=== PATIENT | male | born 1960 | race Caucasian/White ===

== ENCOUNTER 2021-03-17 04:17 | Inpatient (IN) | payer OTHER ==
[2021-03-17] MEDS ORDERED: LIDOCAINE HCL 1% EPINEPHRINE 1:200,000 30 ML VIAL (PF) ONE ×2 (07:56→09:08)
[2021-03-17] MEDS ORDERED: GENTAMICIN SO4 80 MG/2 ML VIAL ONE ×2 (07:56→13:28)
[2021-03-17] MEDS ORDERED: THROMBIN (BOVINE) 20,000 UNIT VIAL TP ONE ×2 (07:56→11:54)
[2021-03-17] MEDS ORDERED: BACITRACIN 15 GM TUBE TOPICAL OINTMENT ONE (07:56)
[2021-03-17] MEDS ORDERED: ACETAMINOPHEN INJECTION 100 ML IVPB ONE (08:04)
[2021-03-17] MEDS ORDERED: fentaNYL CITRATE 250 MCG/5 ML VIAL ONE (08:20)
[2021-03-17] MEDS ORDERED: PROPOFOL 20 ML ONE ×3 (08:21→14:32)
[2021-03-17] MEDS ORDERED: SUCCINYLCHOLINE CHLORIDE 200 MG/10 ML SYRINGE ONE (08:21)
[2021-03-17] MEDS ORDERED: ROCURONIUM BROMIDE 50 MG/5 ML SYRINGE ONE ×3 (08:21→12:44)
[2021-03-17] MEDS ORDERED: MIDAZOLAM HCL 2 MG/2 ML SINGLE DOSE VIAL ONE (08:22)
[2021-03-17] MEDS ORDERED: VANCOMYCIN 1,000 MG VIAL (RESTRICTED TO ID ONLY) IVPB ONE (08:45)
[2021-03-17] MEDS ORDERED: ceFAZolin SODIUM 1 GM VIAL IVPB ONE (08:45)
[2021-03-17] MEDS ORDERED: KETAMINE HCL 200 MG/20 ML VIAL ONE (08:47)
[2021-03-17] MEDS ORDERED: LIDOCAINE 1%/EPI 1:100000 (50 ML MULTI DOSE VIAL) INF ONE (08:55)
[2021-03-17] MEDS ORDERED: THROMBIN (BOVINE) 5,000 UNIT VIAL TP ONE (09:15)
[2021-03-17] MEDS ORDERED: LIDOCAINE HCL/PF 2% SDV 5ML VIAL ONE (09:18)
[2021-03-17] MEDS ORDERED: PHENYLEPHRINE HCL 10 MG/1 ML SINGLE DOSE VIAL ONE (09:18)
[2021-03-17] MEDS ORDERED: GENTAMICIN SO4 80 MG/2 ML VIAL IVPB ONE (09:30)
[2021-03-17] MEDS ORDERED: HYDROGEN PEROXIDE 473 ML PO ONE (09:30)
[2021-03-17] MEDS ORDERED: BENZOIN/ALOE VERA/STORAX/TOLU 58 ML BOTTLE ONE (11:50)
[2021-03-17] MEDS ORDERED: ALBUMIN HUMAN 25% 12.5 GM/50 ML VIAL IVPB SCH (13:00)
[2021-03-17] MEDS ORDERED: BUPIVACAINE LIPOSOME/PF (EXPAREL) 266 MG/20 ML VIAL ONE (13:28)
[2021-03-17] MEDS ORDERED: BUPIVACAINE HCL/PF 0.5% (5MG/ML) 10 ML VIAL ONE (13:29)
[2021-03-17] MEDS ORDERED: GLYCOPYRROLATE 0.2 MG/1 ML VIAL ONE (13:39)
[2021-03-17] MEDS ORDERED: NEOSTIGMINE METHYLSULFATE 0.5 MG/1 ML - 10 ML MDV ONE (13:41)
[2021-03-17] MEDS ORDERED: BUPIVACAINE LIPOSOME/PF (EXPAREL) 266 MG/20 ML VIAL NR ONE (13:46)
[2021-03-17] MEDS ORDERED: BUPIVACAINE HCL/PF 0.5% (5MG/ML) 10 ML VIAL IJ ONE (13:46)
[2021-03-17] MEDS ORDERED: PROMETHAZINE HCL 25 MG/1 ML VIAL IVPUSH PRN (15:23)
[2021-03-17] MEDS ORDERED: LACTATED RINGERS SOLUTION 1,000 ML IV SCH (15:30)
[2021-03-17] MEDS ORDERED: HYDROmorphone HCl 2 MG/ML VIAL SQ PRN (16:26)
[2021-03-17] MEDS ORDERED: oxyCODONE HCL 5 MG TABLET PO PRN (16:26)
[2021-03-17] MEDS ORDERED: ONDANSETRON 4 MG/2 ML VIAL IVPUSH PRN (16:26)
[2021-03-17] MEDS ORDERED: DEXAMETHASONE SOD PHOSPHATE 10 MG/1 ML VIAL IVPUSH ONE (16:26)
[2021-03-17] MEDS ORDERED: DEXAMETHASONE SOD PHOSPHATE 10 MG/1 ML VIAL ONE (16:56)
[2021-03-17] MEDS ORDERED: ceFAZolin SODIUM 1 GM VIAL ONE (17:54)
[2021-03-17] MEDS: CEFAZOLIN 2 GM/D5W 2 GM/50 ML ML IVPB SCH ×2 (18:50→21:21)
[2021-03-17] MEDS: LACTATED RINGERS SOLUTION 1,000 ML IV SCH (19:03)
[2021-03-17 20:52] LABS: HEMATOCRIT 37.6 % (35.4-49); HEMOGLOBIN 13.2 GM/dL (11.7-16.9); MCH 32.1 pg (25.7-33.7); MEAN CELL VOLUME 91.6 fl (80-96); MEAN PLT VOLUME 7.8 fl (7.5-11.1); PLATELET COUNT 167 10^3/uL (134-434); RDW 13.5 % (11.9-15.9); WHITE BLOOD COUNT 9.3 K/mm3 (4.0-10.0)
[2021-03-17 21:18] LABS: CALCIUM 7.9 mg/dL (8.5-10.1)
[2021-03-17 21:19] LABS: ALBUMIN 3.7 g/dl (3.4-5.0); MAGNESIUM 1.9 mg/dL (1.8-2.4)
[2021-03-17] MEDS: MUPIROCIN 2% TOPICAL OINTMENT FOR DECOLONIZATION NS SCH (21:21)
[2021-03-17 21:22] LABS: CREATININE 1.2 mg/dL (0.55-1.3); PHOSPHOROUS 2.9 mg/dL (2.5-4.9)
[2021-03-17] MEDS: CYCLOBENZAPRINE HCL 10 MG TABLET (FP) PO PRN (21:22)
[2021-03-17] MEDS: LISINOPRIL 20 MG TABLET PO SCH (21:22)
[2021-03-17] MEDS: amLODIPine BESYLATE 5 MG TABLET (FP) PO SCH (21:22)
[2021-03-17] MEDS: CHLORHEXIDINE GLUCONATE 4% CLEANSER FOR DECOLONIZATION TP SCH (21:22)
[2021-03-17] MEDS: ATORVASTATIN CA 10 MG TABLET (FP) PO SCH (21:22)
[2021-03-17 21:23] LABS: BILIRUBIN,TOTAL 0.4 mg/dL (0.2-1); TOT PROT 6.5 g/dl (6.4-8.2)
[2021-03-17] MEDS ORDERED: SODIUM CHLORIDE 1,000 ML IV STA (21:43)
[2021-03-17] MEDS ORDERED: PANTOPRAZOLE 20 MG TABLET PO ONE (22:43)
[2021-03-18] MEDS: LACTATED RINGERS SOLUTION 1,000 ML IV SCH ×3 (01:06→23:09)
[2021-03-18] MEDS: CEFAZOLIN 2 GM/D5W 2 GM/50 ML ML IVPB SCH (02:59)
[2021-03-18] MEDS: oxyCODONE HCL 5 MG TABLET PO PRN ×3 (03:41→23:10)
[2021-03-18 06:59] LABS: HEMATOCRIT 38.1 % (35.4-49); HEMOGLOBIN 13.3 GM/dL (11.7-16.9); MCH 32.1 pg (25.7-33.7); MCHC 34.9 g/dl (32.0-35.9); MEAN CELL VOLUME 92.2 fl (80-96); MEAN PLT VOLUME 8.4 fl (7.5-11.1); PLATELET COUNT 186 10^3/uL (134-434); RBC 4.14 M/mm3 (4.00-5.60); RDW 13.6 % (11.9-15.9)
[2021-03-18 07:25] LABS: BLOOD UREA NITROGEN 14.9 mg/dL (7-18); CALCIUM 7.9 mg/dL (8.5-10.1)
[2021-03-18] MEDS ORDERED: DEXAMETHASONE SOD PHOSPHATE 10 MG/1 ML VIAL IVPUSH ONE (08:05)
[2021-03-18 08:11] LABS: EPI CELLS 2 /uL (0-25.1); HYALINE CASTS 0 /uL (0-3.1); URINE APPEARANCE CLEAR; URINE BACTERIA 12 /uL (0-1359); URINE BILIRUBIN NEGATIVE (NEGATIVE); URINE COLOR YELLOW; URINE GLUCOSE (UA) 1+ (NEGATIVE); URINE KETONE NEGATIVE (NEGATIVE); URINE LEUK ESTERASE NEGATIVE (NEGATIVE); URINE NITRITE NEGATIVE (NEGATIVE); URINE PROTEIN NEGATIVE (NEGATIVE); URINE RBC 57 /uL (0-23.9); URINE UROBILINOGEN 0.2 mg/dL (0.2-1.0); URINE WBC 4 /uL (0-25.8)
[2021-03-18] MEDS: MUPIROCIN 2% TOPICAL OINTMENT FOR DECOLONIZATION NS SCH ×2 (09:14→23:10)
[2021-03-18] MEDS: TAMSULOSIN HCL 0.4 MG CAP PO SCH (09:14)
[2021-03-18] MEDS: PANTOPRAZOLE 20 MG TABLET PO SCH (09:27)
[2021-03-18 10:16] LABS: N-TERMINAL BNP 454.4 pg/ml (5-125)
[2021-03-18] MEDS ORDERED: METOPROLOL TARTRATE 5 MG/5 ML VIAL IVPUSH ONE (18:01)
[2021-03-18] MEDS ORDERED: METOPROLOL TARTRATE 5 MG/5 ML VIAL IVPUSH PRN (19:17)
[2021-03-18] MEDS: ATORVASTATIN CA 10 MG TABLET (FP) PO SCH (23:09)
[2021-03-18] MEDS: amLODIPine BESYLATE 5 MG TABLET (FP) PO SCH (23:09)
[2021-03-18] MEDS: LISINOPRIL 20 MG TABLET PO SCH (23:09)
[2021-03-18] MEDS: CHLORHEXIDINE GLUCONATE 4% CLEANSER FOR DECOLONIZATION TP SCH (23:10)
[2021-03-18] MEDS: CYCLOBENZAPRINE HCL 10 MG TABLET (FP) PO PRN (23:10)
[2021-03-19] MEDS: METOPROLOL TARTRATE 5 MG/5 ML VIAL IVPUSH PRN (03:03)
[2021-03-19] MEDS ORDERED: LACTATED RINGERS SOLUTION 1,000 ML IV SCH (05:51)
[2021-03-19] MEDS: oxyCODONE HCL 5 MG TABLET PO PRN ×2 (05:55→21:05)
[2021-03-19] MEDS: CYCLOBENZAPRINE HCL 10 MG TABLET (FP) PO PRN ×2 (05:55→21:05)
[2021-03-19 06:53] LABS: BASO % 0.3 % (0-2.0); EOS % 0.1 % (0-4.5); HEMATOCRIT 40.3 % (35.4-49); HEMOGLOBIN 13.8 GM/dL (11.7-16.9); LYMPH % 13.1 % (8-40); MCH 31.2 pg (25.7-33.7); MCHC 34.1 g/dl (32.0-35.9); MEAN CELL VOLUME 91.6 fl (80-96); MEAN PLT VOLUME 8.1 fl (7.5-11.1); MONO % 11.5 % (3.8-10.2); PLATELET COUNT 196 10^3/uL (134-434); RBC 4.41 M/mm3 (4.00-5.60); RDW 13.7 % (11.9-15.9); WHITE BLOOD COUNT 12.1 K/mm3 (4.0-10.0)
[2021-03-19 07:18] LABS: ALBUMIN 3.6 g/dl (3.4-5.0); BLOOD UREA NITROGEN 15.1 mg/dL (7-18); CALCIUM 8.6 mg/dL (8.5-10.1); MAGNESIUM 2.4 mg/dL (1.8-2.4)
[2021-03-19 07:21] LABS: CREATININE 0.9 mg/dL (0.55-1.3)
[2021-03-19 07:22] LABS: PHOSPHOROUS 2.7 mg/dL (2.5-4.9)
[2021-03-19 07:23] LABS: BILIRUBIN,TOTAL 0.7 mg/dL (0.2-1); TOT PROT 6.8 g/dl (6.4-8.2)
[2021-03-19] MEDS: POLYETHYLENE GLYCOL (HEALTHYLAX) 3350 17 GM PACKET PO SCH (09:32)
[2021-03-19] MEDS: TAMSULOSIN HCL 0.4 MG CAP PO SCH (09:32)
[2021-03-19] MEDS: MUPIROCIN 2% TOPICAL OINTMENT FOR DECOLONIZATION NS SCH ×2 (09:32→21:34)
[2021-03-19] MEDS: PANTOPRAZOLE 20 MG TABLET PO SCH (09:32)
[2021-03-19] MEDS: METOPROLOL TARTRATE 25 MG TABLET (FP) PO SCH ×2 (16:02→21:34)
[2021-03-19] MEDS: CHLORHEXIDINE GLUCONATE 4% CLEANSER FOR DECOLONIZATION TP SCH (21:34)
[2021-03-19] MEDS: amLODIPine BESYLATE 5 MG TABLET (FP) PO SCH (21:34)
[2021-03-19] MEDS: ATORVASTATIN CA 10 MG TABLET (FP) PO SCH (21:34)
[2021-03-19] MEDS: LISINOPRIL 20 MG TABLET PO SCH (21:34)
[2021-03-20] MEDS: METOPROLOL TARTRATE 25 MG TABLET (FP) PO SCH ×3 (06:15→22:03)
[2021-03-20 06:40] LABS: BASO % 0.8 % (0-2.0); EOS % 1.4 % (0-4.5); HEMATOCRIT 38.9 % (35.4-49); HEMOGLOBIN 13.4 GM/dL (11.7-16.9); LYMPH % 14.6 % (8-40); MCH 32.1 pg (25.7-33.7); MCHC 34.6 g/dl (32.0-35.9); MEAN CELL VOLUME 92.8 fl (80-96); MEAN PLT VOLUME 7.9 fl (7.5-11.1); MONO % 12.6 % (3.8-10.2); NEUT % 70.6 % (42.8-82.8); PLATELET COUNT 183 10^3/uL (134-434); RBC 4.19 M/mm3 (4.00-5.60); RDW 13.4 % (11.9-15.9); WHITE BLOOD COUNT 9.4 K/mm3 (4.0-10.0)
[2021-03-20 06:57] LABS: ALBUMIN 3.3 g/dl (3.4-5.0); BLOOD UREA NITROGEN 17.9 mg/dL (7-18); CALCIUM 8.4 mg/dL (8.5-10.1); MAGNESIUM 2.3 mg/dL (1.8-2.4)
[2021-03-20 07:00] LABS: PHOSPHOROUS 3.4 mg/dL (2.5-4.9)
[2021-03-20 07:02] LABS: BILIRUBIN,TOTAL 0.8 mg/dL (0.2-1); TOT PROT 6.3 g/dl (6.4-8.2)
[2021-03-20] MEDS: PANTOPRAZOLE 20 MG TABLET PO SCH (09:18)
[2021-03-20] MEDS: TAMSULOSIN HCL 0.4 MG CAP PO SCH (09:18)
[2021-03-20] MEDS: MUPIROCIN 2% TOPICAL OINTMENT FOR DECOLONIZATION NS SCH ×2 (09:18→22:03)
[2021-03-20] MEDS: POLYETHYLENE GLYCOL (HEALTHYLAX) 3350 17 GM PACKET PO SCH (09:18)
[2021-03-20] MEDS: ACETAMINOPHEN 325 MG TABLET (FP) PO PRN ×2 (12:16→22:20)
[2021-03-20] MEDS: METOPROLOL TARTRATE 5 MG/5 ML VIAL IVPUSH PRN ×2 (13:08→17:36)
[2021-03-20 19:50] LABS: EPI CELLS 7 /uL (0-25.1); HYALINE CASTS 0 /uL (0-3.1); URINE APPEARANCE CLEAR; URINE BACTERIA 48 /uL (0-1359); URINE BILIRUBIN NEGATIVE (NEGATIVE); URINE COLOR YELLOW; URINE GLUCOSE (UA) NEGATIVE (NEGATIVE); URINE KETONE NEGATIVE (NEGATIVE); URINE LEUK ESTERASE NEGATIVE (NEGATIVE); URINE NITRITE NEGATIVE (NEGATIVE); URINE PROTEIN NEGATIVE (NEGATIVE); URINE RBC 10 /uL (0-23.9); URINE UROBILINOGEN 0.2 mg/dL (0.2-1.0); URINE WBC 15 /uL (0-25.8)
[2021-03-20] MEDS: ATORVASTATIN CA 10 MG TABLET (FP) PO SCH (22:03)
[2021-03-20] MEDS: CHLORHEXIDINE GLUCONATE 4% CLEANSER FOR DECOLONIZATION TP SCH (22:03)
[2021-03-20] MEDS: amLODIPine BESYLATE 5 MG TABLET (FP) PO SCH (22:03)
[2021-03-20] MEDS: LISINOPRIL 20 MG TABLET PO SCH (22:03)
[2021-03-21] MEDS: CYCLOBENZAPRINE HCL 10 MG TABLET (FP) PO PRN ×2 (03:35→22:11)
[2021-03-21] MEDS: METOPROLOL TARTRATE 25 MG TABLET (FP) PO SCH (06:27)
[2021-03-21] MEDS: ACETAMINOPHEN 325 MG TABLET (FP) PO PRN (06:35)
[2021-03-21 07:22] LABS: BASO % 0.3 % (0-2.0); EOS % 1.4 % (0-4.5); HEMATOCRIT 37.9 % (35.4-49); HEMOGLOBIN 13.2 GM/dL (11.7-16.9); LYMPH % 11.4 % (8-40); MCHC 34.9 g/dl (32.0-35.9); MEAN CELL VOLUME 91.8 fl (80-96); MEAN PLT VOLUME 7.8 fl (7.5-11.1); MONO % 10.9 % (3.8-10.2); PLATELET COUNT 170 10^3/uL (134-434); RBC 4.13 M/mm3 (4.00-5.60); RDW 13.4 % (11.9-15.9); WHITE BLOOD COUNT 10.6 K/mm3 (4.0-10.0)
[2021-03-21 07:35] LABS: ALBUMIN 3.2 g/dl (3.4-5.0); BLOOD UREA NITROGEN 18.3 mg/dL (7-18); CALCIUM 8.3 mg/dL (8.5-10.1); MAGNESIUM 2.3 mg/dL (1.8-2.4)
[2021-03-21 07:39] LABS: PHOSPHOROUS 3.1 mg/dL (2.5-4.9)
[2021-03-21 07:40] LABS: TOT PROT 6.3 g/dl (6.4-8.2)
[2021-03-21] MEDS ORDERED: ACETAMINOPHEN 1000 MG/100 ML BAG IVPB ONE ×2 (08:55→15:20)
[2021-03-21] MEDS: PANTOPRAZOLE 20 MG TABLET PO SCH (09:01)
[2021-03-21] MEDS: TAMSULOSIN HCL 0.4 MG CAP PO SCH (09:01)
[2021-03-21] MEDS: POLYETHYLENE GLYCOL (HEALTHYLAX) 3350 17 GM PACKET PO SCH ×3 (09:01→22:11)
[2021-03-21] MEDS: MUPIROCIN 2% TOPICAL OINTMENT FOR DECOLONIZATION NS SCH ×2 (09:04→22:12)
[2021-03-21] MEDS ORDERED: DOCUSATE SODIUM 100 MG CAPSULE (FP) PO SCH (10:00)
[2021-03-21] MEDS ORDERED: PANTOPRAZOLE 20 MG TABLET PO ONE (10:58)
[2021-03-21] MEDS: METOPROLOL TARTRATE 50 MG TABLET (FP) PO SCH ×2 (13:14→22:11)
[2021-03-21] MEDS ORDERED: PT OWN MED DRAWER 7, Y5N ONE (15:25)
[2021-03-21] MEDS: DOCUSATE SODIUM 100 MG CAPSULE (FP) PO SCH ×2 (18:28→22:12)
[2021-03-21] MEDS: ENOXAPARIN NA (PORCINE) 40 MG/0.4 ML DISP.SYRIN SQ SCH (18:28)
[2021-03-21] MEDS: SENNOSIDES 8.6MG TABLET (FP) PO SCH (22:11)
[2021-03-21] MEDS: LISINOPRIL 20 MG TABLET PO SCH (22:11)
[2021-03-21] MEDS: ATORVASTATIN CA 10 MG TABLET (FP) PO SCH (22:11)
[2021-03-21] MEDS: amLODIPine BESYLATE 5 MG TABLET (FP) PO SCH (22:12)
[2021-03-21] MEDS: CHLORHEXIDINE GLUCONATE 4% CLEANSER FOR DECOLONIZATION TP SCH (23:56)
[2021-03-22] MEDS: METOPROLOL TARTRATE 50 MG TABLET (FP) PO SCH ×3 (06:27→22:08)
[2021-03-22 07:35] LABS: BASO % 0.3 % (0-2.0); EOS % 2.8 % (0-4.5); HEMATOCRIT 36.6 % (35.4-49); HEMOGLOBIN 12.8 GM/dL (11.7-16.9); LYMPH % 11.5 % (8-40); MCH 32.4 pg (25.7-33.7); MCHC 35.1 g/dl (32.0-35.9); MEAN CELL VOLUME 92.3 fl (80-96); MEAN PLT VOLUME 8.1 fl (7.5-11.1); MONO % 11.5 % (3.8-10.2); NEUT % 73.9 % (42.8-82.8); PLATELET COUNT 180 10^3/uL (134-434); RBC 3.96 M/mm3 (4.00-5.60); WHITE BLOOD COUNT 10.8 K/mm3 (4.0-10.0)
[2021-03-22 08:00] LABS: CALCIUM 8.1 mg/dL (8.5-10.1)
[2021-03-22 08:01] LABS: ALBUMIN 2.9 g/dl (3.4-5.0); BLOOD UREA NITROGEN 33.4 mg/dL (7-18); MAGNESIUM 2.7 mg/dL (1.8-2.4)
[2021-03-22 08:04] LABS: CREATININE 2.1 mg/dL (0.55-1.3)
[2021-03-22 08:05] LABS: BILIRUBIN,TOTAL 0.8 mg/dL (0.2-1)
[2021-03-22] MEDS: LACTATED RINGERS SOLUTION 1,000 ML/1,000 ML INFUS.BAG IV SCH ×2 (09:04→22:12)
[2021-03-22] MEDS: TAMSULOSIN HCL 0.4 MG CAP PO SCH (09:58)
[2021-03-22] MEDS: PANTOPRAZOLE 20 MG TABLET PO SCH ×2 (09:58→10:11)
[2021-03-22] MEDS: DOCUSATE SODIUM 100 MG CAPSULE (FP) PO SCH ×2 (09:59→22:08)
[2021-03-22] MEDS: MUPIROCIN 2% TOPICAL OINTMENT FOR DECOLONIZATION NS SCH (09:59)
[2021-03-22] MEDS: ENOXAPARIN NA (PORCINE) 40 MG/0.4 ML DISP.SYRIN SQ SCH (09:59)
[2021-03-22] MEDS: POLYETHYLENE GLYCOL (HEALTHYLAX) 3350 17 GM PACKET PO SCH ×2 (10:11→22:13)
[2021-03-22] MEDS: METOPROLOL TARTRATE 5 MG/5 ML VIAL IVPUSH PRN (10:13)
[2021-03-22] MEDS: CHLORHEXIDINE GLUCONATE 4% CLEANSER FOR DECOLONIZATION TP SCH (22:08)
[2021-03-22] MEDS: ATORVASTATIN CA 10 MG TABLET (FP) PO SCH (22:08)
[2021-03-22] MEDS: CYCLOBENZAPRINE HCL 10 MG TABLET (FP) PO PRN (22:08)
[2021-03-22] MEDS: amLODIPine BESYLATE 5 MG TABLET (FP) PO SCH (22:08)
[2021-03-22] MEDS: SENNOSIDES 8.6MG TABLET (FP) PO SCH (22:08)
[2021-03-22] MEDS: LIDOCAINE 5% TOPICAL PATCH TP SCH (23:04)
[2021-03-22] MEDS: LIDOCAINE PATCH REMOVAL MC SCH (23:05)
[2021-03-23] MEDS: METOPROLOL TARTRATE 50 MG TABLET (FP) PO SCH ×3 (05:08→20:59)
[2021-03-23 06:41] LABS: BASO % 0.4 % (0-2.0); EOS % 3.7 % (0-4.5); HEMATOCRIT 34.7 % (35.4-49); LYMPH % 10.4 % (8-40); MCH 32.1 pg (25.7-33.7); MCHC 34.8 g/dl (32.0-35.9); MEAN CELL VOLUME 92.2 fl (80-96); MEAN PLT VOLUME 7.9 fl (7.5-11.1); MONO % 10.9 % (3.8-10.2); NEUT % 74.6 % (42.8-82.8); PLATELET COUNT 193 10^3/uL (134-434); RBC 3.76 M/mm3 (4.00-5.60)
[2021-03-23 07:01] LABS: CALCIUM 7.9 mg/dL (8.5-10.1)
[2021-03-23 07:02] LABS: ALBUMIN 2.7 g/dl (3.4-5.0); BLOOD UREA NITROGEN 39.3 mg/dL (7-18); MAGNESIUM 2.6 mg/dL (1.8-2.4)
[2021-03-23 07:05] LABS: CREATININE 2.5 mg/dL (0.55-1.3)
[2021-03-23 07:07] LABS: BILIRUBIN,TOTAL 0.7 mg/dL (0.2-1)
[2021-03-23] MEDS: TAMSULOSIN HCL 0.4 MG CAP PO SCH (08:37)
[2021-03-23] MEDS: PANTOPRAZOLE 20 MG TABLET PO SCH (09:45)
[2021-03-23] MEDS: ENOXAPARIN NA (PORCINE) 40 MG/0.4 ML DISP.SYRIN SQ SCH (09:46)
[2021-03-23] MEDS: POLYETHYLENE GLYCOL (HEALTHYLAX) 3350 17 GM PACKET PO SCH ×2 (09:48→20:59)
[2021-03-23] MEDS: DOCUSATE SODIUM 100 MG CAPSULE (FP) PO SCH ×2 (09:48→20:59)
[2021-03-23] MEDS: LIDOCAINE 5% TOPICAL PATCH TP SCH (09:48)
[2021-03-23] MEDS: LACTATED RINGERS SOLUTION 1,000 ML/1,000 ML INFUS.BAG IV SCH ×2 (09:49→20:58)
[2021-03-23] MEDS ORDERED: ACETAMINOPHEN 1000 MG/100 ML BAG IVPB ONE (11:30)
[2021-03-23] MEDS: GABAPENTIN 100 MG CAPSULE PO SCH ×2 (13:16→20:59)
[2021-03-23 13:59] VITALS: BMI 33.5
[2021-03-23] MEDS: LIDOCAINE PATCH REMOVAL MC SCH (20:59)
[2021-03-23] MEDS: CHLORHEXIDINE GLUCONATE 4% CLEANSER FOR DECOLONIZATION TP SCH (20:59)
[2021-03-23] MEDS: SENNOSIDES 8.6MG TABLET (FP) PO SCH (20:59)
[2021-03-23] MEDS: amLODIPine BESYLATE 5 MG TABLET (FP) PO SCH (20:59)
[2021-03-23] MEDS: ATORVASTATIN CA 10 MG TABLET (FP) PO SCH (20:59)
[2021-03-23] MEDS: CYCLOBENZAPRINE HCL 10 MG TABLET (FP) PO PRN (20:59)
[2021-03-24] MEDS: METOPROLOL TARTRATE 50 MG TABLET (FP) PO SCH ×3 (05:51→21:03)
[2021-03-24] MEDS: GABAPENTIN 100 MG CAPSULE PO SCH ×3 (05:51→21:04)
[2021-03-24 06:36] LABS: BASO % 0.8 % (0-2.0); EOS % 4.5 % (0-4.5); HEMATOCRIT 33.8 % (35.4-49); HEMOGLOBIN 11.8 GM/dL (11.7-16.9); LYMPH % 14.3 % (8-40); MCHC 34.9 g/dl (32.0-35.9); MEAN CELL VOLUME 91.9 fl (80-96); MEAN PLT VOLUME 7.9 fl (7.5-11.1); MONO % 12.6 % (3.8-10.2); NEUT % 67.8 % (42.8-82.8); PLATELET COUNT 208 10^3/uL (134-434); RBC 3.68 M/mm3 (4.00-5.60); RDW 13.2 % (11.9-15.9)
[2021-03-24 06:51] LABS: BLOOD UREA NITROGEN 42.7 mg/dL (7-18); CALCIUM 7.9 mg/dL (8.5-10.1)
[2021-03-24 06:52] LABS: ALBUMIN 2.7 g/dl (3.4-5.0); MAGNESIUM 2.6 mg/dL (1.8-2.4)
[2021-03-24 06:54] LABS: CREATININE 2.9 mg/dL (0.55-1.3)
[2021-03-24 06:55] LABS: PHOSPHOROUS 4.7 mg/dL (2.5-4.9)
[2021-03-24 06:56] LABS: BILIRUBIN,TOTAL 0.5 mg/dL (0.2-1); TOT PROT 5.8 g/dl (6.4-8.2)
[2021-03-24] MEDS: TAMSULOSIN HCL 0.4 MG CAP PO SCH (08:51)
[2021-03-24] MEDS: POLYETHYLENE GLYCOL (HEALTHYLAX) 3350 17 GM PACKET PO SCH ×2 (10:44→21:03)
[2021-03-24] MEDS: DOCUSATE SODIUM 100 MG CAPSULE (FP) PO SCH ×2 (10:44→21:03)
[2021-03-24] MEDS: LIDOCAINE 5% TOPICAL PATCH TP SCH (10:44)
[2021-03-24] MEDS: ENOXAPARIN NA (PORCINE) 40 MG/0.4 ML DISP.SYRIN SQ SCH (10:45)
[2021-03-24] MEDS: PANTOPRAZOLE 20 MG TABLET PO SCH (10:45)
[2021-03-24] MEDS: LACTATED RINGERS SOLUTION 1,000 ML/1,000 ML INFUS.BAG IV SCH ×2 (10:45→18:00)
[2021-03-24] MEDS: CYCLOBENZAPRINE HCL 10 MG TABLET (FP) PO PRN ×2 (14:38→21:04)
[2021-03-24] MEDS: LIDOCAINE PATCH REMOVAL MC SCH (21:03)
[2021-03-24] MEDS: ATORVASTATIN CA 10 MG TABLET (FP) PO SCH (21:03)
[2021-03-24] MEDS: CHLORHEXIDINE GLUCONATE 4% CLEANSER FOR DECOLONIZATION TP SCH (21:03)
[2021-03-24] MEDS: ACETAMINOPHEN 325 MG TABLET (FP) PO PRN (21:04)
[2021-03-24] MEDS: amLODIPine BESYLATE 5 MG TABLET (FP) PO SCH (21:04)
[2021-03-24] MEDS: SENNOSIDES 8.6MG TABLET (FP) PO SCH (21:04)
[2021-03-25] MEDS: LACTATED RINGERS SOLUTION 1,000 ML/1,000 ML INFUS.BAG IV SCH (03:00)
[2021-03-25] MEDS: METOPROLOL TARTRATE 50 MG TABLET (FP) PO SCH ×3 (06:45→21:18)
[2021-03-25] MEDS: GABAPENTIN 100 MG CAPSULE PO SCH ×3 (06:45→21:18)
[2021-03-25 07:33] LABS: HEMATOCRIT 33.3 % (35.4-49); HEMOGLOBIN 11.5 GM/dL (11.7-16.9); MCHC 34.5 g/dl (32.0-35.9); MEAN CELL VOLUME 92.7 fl (80-96); MEAN PLT VOLUME 7.7 fl (7.5-11.1); PLATELET COUNT 205 10^3/uL (134-434); RBC 3.59 M/mm3 (4.00-5.60); RDW 13.1 % (11.9-15.9)
[2021-03-25 07:52] LABS: CALCIUM 8.1 mg/dL (8.5-10.1)
[2021-03-25 07:53] LABS: BLOOD UREA NITROGEN 18.5 mg/dL (7-18)
[2021-03-25 07:56] LABS: CREATININE 1.2 mg/dL (0.55-1.3)
[2021-03-25] MEDS: TAMSULOSIN HCL 0.4 MG CAP PO SCH (09:53)
[2021-03-25] MEDS: DOCUSATE SODIUM 100 MG CAPSULE (FP) PO SCH ×2 (09:53→21:18)
[2021-03-25] MEDS: ENOXAPARIN NA (PORCINE) 40 MG/0.4 ML DISP.SYRIN SQ SCH (09:53)
[2021-03-25] MEDS: LIDOCAINE 5% TOPICAL PATCH TP SCH (09:53)
[2021-03-25] MEDS: PANTOPRAZOLE 20 MG TABLET PO SCH (09:53)
[2021-03-25] MEDS: POLYETHYLENE GLYCOL (HEALTHYLAX) 3350 17 GM PACKET PO SCH ×2 (09:59→21:19)
[2021-03-25] MEDS ORDERED: METOPROLOL TARTRATE 5 MG/5 ML VIAL IVPUSH PRN (11:19)
[2021-03-25] MEDS ORDERED: LACTATED RINGERS SOLUTION 1,000 ML/1,000 ML INFUS.BAG IV SCH ×2 (11:19→14:06)
[2021-03-25] MEDS ORDERED: ACETAMINOPHEN 325 MG TABLET (FP) PO PRN (11:19)
[2021-03-25] MEDS ORDERED: ONDANSETRON 4 MG/2 ML VIAL IVPUSH PRN (11:19)
[2021-03-25] MEDS: ATORVASTATIN CA 10 MG TABLET (FP) PO SCH (21:18)
[2021-03-25] MEDS: amLODIPine BESYLATE 5 MG TABLET (FP) PO SCH (21:18)
[2021-03-25] MEDS: SENNOSIDES 8.6MG TABLET (FP) PO SCH (21:19)
[2021-03-25] MEDS: LIDOCAINE PATCH REMOVAL MC SCH (21:27)
[2021-03-25] MEDS ORDERED: CHLORHEXIDINE GLUCONATE 4% CLEANSER FOR DECOLONIZATION TP SCH (22:00)
[2021-03-25] MEDS: CYCLOBENZAPRINE HCL 10 MG TABLET (FP) PO PRN (23:55)
[2021-03-26] MEDS: GABAPENTIN 100 MG CAPSULE PO SCH ×3 (06:23→21:04)
[2021-03-26] MEDS: METOPROLOL TARTRATE 50 MG TABLET (FP) PO SCH ×3 (06:23→21:04)
[2021-03-26 07:47] LABS: HEMATOCRIT 36.3 % (35.4-49); HEMOGLOBIN 12.7 GM/dL (11.7-16.9); MCH 32.5 pg (25.7-33.7); MCHC 35.1 g/dl (32.0-35.9); MEAN CELL VOLUME 92.7 fl (80-96); MEAN PLT VOLUME 8.2 fl (7.5-11.1); PLATELET COUNT 238 10^3/uL (134-434); RBC 3.92 M/mm3 (4.00-5.60); RDW 12.6 % (11.9-15.9); WHITE BLOOD COUNT 8.3 K/mm3 (4.0-10.0)
[2021-03-26 08:09] LABS: CALCIUM 8.5 mg/dL (8.5-10.1)
[2021-03-26] MEDS ORDERED: TAMSULOSIN HCL 0.4 MG CAP PO SCH (08:30)
[2021-03-26] MEDS: POLYETHYLENE GLYCOL (HEALTHYLAX) 3350 17 GM PACKET PO SCH ×2 (09:35→21:05)
[2021-03-26] MEDS: DOCUSATE SODIUM 100 MG CAPSULE (FP) PO SCH ×2 (09:35→21:04)
[2021-03-26] MEDS ORDERED: PANTOPRAZOLE 20 MG TABLET PO SCH (10:00)
[2021-03-26] MEDS ORDERED: ENOXAPARIN NA (PORCINE) 40 MG/0.4 ML DISP.SYRIN SQ SCH (10:00)
[2021-03-26] MEDS ORDERED: LIDOCAINE 5% TOPICAL PATCH TP SCH (10:00)
[2021-03-26 19:55] VITALS: BP 143/92; PULSE 93; TEMP 98.8
[2021-03-26] MEDS: amLODIPine BESYLATE 5 MG TABLET (FP) PO SCH (21:04)
[2021-03-26] MEDS: ATORVASTATIN CA 10 MG TABLET (FP) PO SCH (21:05)
[2021-03-26] MEDS: SENNOSIDES 8.6MG TABLET (FP) PO SCH (21:05)
[2021-03-26] MEDS: CYCLOBENZAPRINE HCL 10 MG TABLET (FP) PO PRN (21:05)
[2021-03-26] MEDS: LIDOCAINE PATCH REMOVAL MC SCH (21:09)
== END 2021-03-26 22:26 | DRG 454 ==
LOC: J2C 04:17 → JICU 18:48 → J4W 03-24 23:33
PROVIDERS: ADMIT Orthopaedic Surgery Orthopaedic Surgery of the Spine; ATTEND Internal Medicine
PROC: 0RG2071 Fusion of 2 or more Cervical Vertebral Joints with Autologous Tissue Substitute, Posterior Approach, Posterior Column, Open Approach (ICD-10-PCS; 2021-03-17)
PROC: 0RB30ZZ Excision of Cervical Vertebral Disc, Open Approach (ICD-10-PCS; 2021-03-17)
PROC: 01N10ZZ Release Cervical Nerve, Open Approach (ICD-10-PCS; 2021-03-17)
PROC: 00NW0ZZ Release Cervical Spinal Cord, Open Approach (ICD-10-PCS; 2021-03-17)
PROC: 0PS304Z Reposition Cervical Vertebra with Internal Fixation Device, Open Approach (ICD-10-PCS; 2021-03-17)
PROC: B01BZZZ Fluoroscopy of Spinal Cord (ICD-10-PCS; 2021-03-17)
PROC: 0RG20A0 Fusion of 2 or more Cervical Vertebral Joints with Interbody Fusion Device, Anterior Approach, Anterior Column, Open Approach (ICD-10-PCS; principal; 2021-03-17 08:00)
DX: M48.02 Spinal stenosis, cervical region (principal); M47.12 Other spondylosis with myelopathy, cervical region; I97.89 Other postprocedural complications and disorders of the circulatory system, not elsewhere classified; J95.89 Other postprocedural complications and disorders of respiratory system, not elsewhere classified; J98.11 Atelectasis; N17.9 Acute kidney failure, unspecified; N13.30 Unspecified hydronephrosis; M47.22 Other spondylosis with radiculopathy, cervical region; M40.292 Other kyphosis, cervical region; I10 Essential (primary) hypertension; E78.5 Hyperlipidemia, unspecified; N40.0 Benign prostatic hyperplasia without lower urinary tract symptoms; F41.8 Other specified anxiety disorders; M25.569 Pain in unspecified knee; E07.9 Disorder of thyroid, unspecified; I45.10 Unspecified right bundle-branch block; R50.9 Fever, unspecified; R09.02 Hypoxemia; K59.00 Constipation, unspecified; E66.9 Obesity, unspecified; Z68.33 Body mass index [BMI] 33.0-33.9, adult; K21.9 Gastro-esophageal reflux disease without esophagitis; F43.10 Post-traumatic stress disorder, unspecified; Y83.8 Other surgical procedures as the cause of abnormal reaction of the patient, or of later complication, without mention of misadventure at the time of the procedure; I25.10 Atherosclerotic heart disease of native coronary artery without angina pectoris; R73.9 Hyperglycemia, unspecified
CPT/HCPCS: 36415; 71045-TC-FY; 71275-TC; 72125-TC; 76000-TC-FY; 76775-TC; 80048; 80053; 80061; 81003; 82436; 82550; 82553; 82570; 83036; 83735; 83880; 84100; 84133; 84300; 84439; 84443; 84479; 84484; 85025; 85027; 85379; 86850; 86900; 86901; 87040; 87086; 93005; 93010; 93306-TC; 93970-TC; 94760; 97116-GP; 97161-GP; C9803; J0131; J1100; U0003; U0005